=== PATIENT | female | born 1995 ===

== ENCOUNTER 2020-06-25 11:04 | Outpatient (RCR) | payer OTHER, SELFPAY ==
[2020-06-25 11:16] VITALS: BMI 44.0
[2020-06-25 11:18] VITALS: BMI 44.0
== END 2020-09-13 10:00 | disposition home or self-care (01) ==
LOC: ANHDMC 11:04
DX: E66.9 Obesity, unspecified (principal); Z71.3 Dietary counseling and surveillance
CPT/HCPCS: 97802